=== PATIENT | female | born 2000 ===

== ENCOUNTER 2022-01-21 14:21 | Outpatient (CLI) | payer OTHER ==
[2022-01-21 17:01] LABS: Color,Urine Straw (Yellow)
[2022-01-21 17:02] LABS: Bilirubin,Urine Negative (Negative); Blood,Urine Negative (Negative)
[2022-01-21 17:03] LABS: Protein,Urine <15 mg/dL mg/dL (Negative)
[2022-01-21 17:06] LABS: Bacteria,Urine 1+ /HPF (Negative)
[2022-01-21 17:35] VITALS: BP 87/54
--- NOTE | 2022-01-22 00:34 | Ultrasound Report ---
US OB limited, US OB BPP wo non-stress INDICATION / CLINICAL INFORMATION: Vaginal Bleeding COMPARISON: None available. TECHNIQUE: Using a transcutaneous probe, multiple grayscale, color Doppler, and spectral Doppler imag es of the uterus and fetus were captured and stored. Additional biophysical profile score was perform ed. FINDINGS: A single cephalic fetus is present, rate 146 bpm. The amniotic fluid index is low normal measuring 7.3 cm. A grade 1 placenta is implanted within the right lateral uterine fundus. No abnormality of the placen spenser margin or interface is demonstrated. BREATHING MOVEMENT = 2 GROSS BODY MOVEMENT = 2 TONE = 2 QUALITATIVE AMNIOTIC FLUID VOLUME = 2 TOTAL BIOPHYSICAL SCORE = 8/8 IMPRESSION: 1. No ultrasound abnormality of the placental margin or interface is demonstrated. 2. Normal biophysical profile score. 3. Single living fetus heart rate 146. Signer Name: Ryan Granados II, MD Signed: 01/22/2022 12:29 AM Workstation Name: [id number]
--- NOTE | 2022-01-22 00:34 | Ultrasound Report ---
US OB limited, US OB BPP wo non-stress INDICATION / CLINICAL INFORMATION: Vaginal Bleeding COMPARISON: None available. TECHNIQUE: Using a transcutaneous probe, multiple grayscale, color Doppler, and spectral Doppler imag es of the uterus and fetus were captured and stored. Additional biophysical profile score was perform ed. FINDINGS: A single cephalic fetus is present, rate 146 bpm. The amniotic fluid index is low normal measuring 7.3 cm. A grade 1 placenta is implanted within the right lateral uterine fundus. No abnormality of the placen spenser margin or interface is demonstrated. BREATHING MOVEMENT = 2 GROSS BODY MOVEMENT = 2 TONE = 2 QUALITATIVE AMNIOTIC FLUID VOLUME = 2 TOTAL BIOPHYSICAL SCORE = 8/8 IMPRESSION: 1. No ultrasound abnormality of the placental margin or interface is demonstrated. 2. Normal biophysical profile score. 3. Single living fetus heart rate 146. Signer Name: Ryan rGanados II, MD Signed: 01/22/2022 12:29 AM Workstation Name: [id number]
== END 2022-01-21 17:50 | disposition home or self-care (01) ==
LOC: TRG 14:21 → APU 15:28 → TRG 17:50
PROVIDERS: ATTEND Obstetrics & Gynecology
DX: O26.853 Spotting complicating pregnancy, third trimester (principal); Z3A.29 29 weeks gestation of pregnancy
CPT/HCPCS: 59025; 76815; 76819; 81001